=== PATIENT | male | born 1955 | race Caucasian/White ===

== ENCOUNTER → 2021-11-16 | Day surgery (SDC) | payer BC ==
[2021-11-13 15:40] VITALS: BMI 30.4
[2021-11-16 08:08] VITALS: BP 186/109; PULSE 88; TEMP 98.6
== END | disposition home or self-care (01) ==
LOC: FASU 07:24
PROVIDERS: ATTEND Orthopaedic Surgery
PROC: 01N40ZZ Release Ulnar Nerve, Open Approach (ICD-10-PCS; principal; 2021-11-16)
DX: Z53.09 Procedure and treatment not carried out because of other contraindication (principal); G56.22 Lesion of ulnar nerve, left upper limb

== ENCOUNTER 2021-12-21 07:32 | Day surgery (SDC) | payer BC ==
[2021-12-19 09:43] VITALS: BMI 30.4
[2021-12-21] MEDS ORDERED: MIDAZOLAM HCL 2 MG/2 ML SINGLE DOSE VIAL ONE ×2 (09:18→09:34)
[2021-12-21] MEDS ORDERED: PROPOFOL 20 ML ONE (09:19)
[2021-12-21] MEDS ORDERED: BUPIVACAINE HCL 100 ML ONE (09:38)
[2021-12-21] MEDS ORDERED: ceFAZolin SODIUM 1 GM VIAL IVPB ONE (09:42)
[2021-12-21] MEDS ORDERED: BUPIVACAINE HCL/PF 0.5% (5MG/ML) 10 ML VIAL IJ ONE (10:35)
[2021-12-21] MEDS ORDERED: oxyCODONE HCL 5 MG TABLET PO PRN (10:58)
[2021-12-21] MEDS ORDERED: PROMETHAZINE HCL 25 MG/1 ML VIAL IVPUSH PRN (10:58)
[2021-12-21] MEDS ORDERED: ONDANSETRON 4 MG/2 ML VIAL IVPUSH PRN (10:58)
[2021-12-21] MEDS ORDERED: LACTATED RINGERS SOLUTION 1,000 ML IV SCH (11:00)
[2021-12-21 12:04] VITALS: TEMP 97.4
[2021-12-21 12:54] VITALS: BP 133/81; PULSE 84
== END 2021-12-21 12:54 | disposition home or self-care (01) ==
LOC: FASU 07:32
PROVIDERS: ATTEND Orthopaedic Surgery
PROC: 01N40ZZ Release Ulnar Nerve, Open Approach (ICD-10-PCS; principal; 2021-12-21 09:00)
DX: G56.22 Lesion of ulnar nerve, left upper limb (principal)
CPT/HCPCS: 94760